=== PATIENT | male | born 1980 | race Caucasian/White ===

== ENCOUNTER 2016-04-16 14:36 | Emergency (ER) | payer OTHER ==
[2016-04-16 14:49] VITALS: PULSE 89; RESP 16; TEMP 98.2; O2SAT 98
[2016-04-16] MEDS ORDERED: TDAP ADULT 0.5 ML INJ (BOOSTRIX) IM ONE (14:49)
--- NOTE | 2016-04-16 15:34 | UCPHY ---
H & P Patient Type: New Chief Complaint Nursing Narrative: Cat bites and scratches on bilat arms and hands after breaking up patient's own cats fight today. Time Seen by Provider: 04/16/16 15:17 HPI/ROS: CHIEF COMPLAINT: Cat scratch and bite HISTORY OF PRESENT ILLNESS: The patient is a 35-year-old man who was breaking up a fight between his 2 cats. He has been several times on the right arm and has several scratches as well. This was about 2 hours ago. The bleeding is now stopped. He is not suspicious of foreign body. He was updated on tetanus here. REVIEW OF SYSTEMS: Constitutional: denies: chills, fever, recent illness, recent injury EENTM: denies: blurred vision, double vision, nose congestion Respiratory: denies: cough, shortness of breath Cardiac: denies: chest pain, irregular heart rate, lightheadedness, palpitations Gastrointestinal/Abdominal: denies: abdominal pain, diarrhea, nausea, vomiting, blood streaked stools Genitourinary: denies: dysuria, frequency, hematuria, pain Musculoskeletal: denies: joint pain, muscle pain Skin: See HPI Neurologic, denies paresthesia, tingling, dizziness, weakness Hematologic/Lymphatic: denies: blood clots, easy bleeding, easy bruising Immunologic/allergic: denies: HIV/AIDS, transplant EXAM: GENERAL: Well-appearing, well-nourished and in no acute distress. HEAD: Atraumatic, normocephalic. EYES: Pupils equal round and reactive to light, extraocular movements intact, sclera anicteric, conjunctiva are normal. ENT: TMs normal, nares patent, oropharynx clear without exudates. Moist mucous membranes. NECK: Normal range of motion, supple without lymphadenopathy or JVD. LUNGS: Breath sounds clear to auscultation bilaterally and equal. No wheezes rales or rhonchi. HEART: Regular rate and rhythm without murmurs, rubs or gallops. ABDOMEN: Soft, nontender, normoactive bowel sounds. No guarding, no rebound. No masses appreciated. BACK: No CVA tenderness, no spinal tenderness, step-offs or deformities EXTREMITIES: Normal range of motion, no pitting or edema. No clubbing or cyanosis. NEUROLOGICAL: Cranial nerves II through XII grossly intact. Normal speech, normal gait. 5/5 strength, normal movement in all extremities, normal sensation PSYCH: Normal mood, normal affect. SKIN: Multiple abrasions and small puncture wounds to arms and hands. Normal range of motion and function. No erythema. No sign of foreign body Source: Patient Exam Limitations: No limitations - Personal History Current Tetanus/Diphtheria Vaccine: Unsure Current Tetanus Diphtheria and Acellular Pertussis (TDAP): Unsure - Medical/Surgical History Hx Asthma: No Hx Chronic Respiratory Disease: No Hx Diabetes: No Hx Cardiac Disease: No Hx Renal Disease: No Hx Cirrhosis: No Hx Alcoholism: No Hx HIV/AIDS: No Hx Splenectomy or Spleen Trauma: No Other PMH: Smokes marijuana and cigars, tonsilectomy, vasectomy - Family History Significant Family History: Hypertension - Social History Smoking Status: Never smoked Alcohol Use: Sober Drug Use: None Constitutional: Initial Vital Signs Temperature (C) 36.8 C 04/16/16 14:42 Heart Rate 89 04/16/16 14:42 Respiratory Rate 16 04/16/16 14:42 O2 Sat (%) 98 04/16/16 14:42 O2 Delivery Mode Room Air Allergies/Adverse Reactions: Sulfa (Sulfonamide Antibiotics) Allergy (Intermediate, Verified 04/16/16 14:47) Hives Home Medications: Medication Instructions Recorded NK [No Known Home Meds] 04/16/16 Medical Decision Making ED Course/Re-evaluation: The patient's tetanus was updated. His abrasions and puncture wounds were cleaned and dressed with antibiotic ointment. He is happy with this and declines further workup or testing. We discussed cat scratch disease and symptoms to watch for. He also had several questions about a "gurgling sensation" he had had in his stomach over the last several months. It has decreased gradually. It is not painful. His abdominal exam is benign. He is not having diarrhea or vomiting. He states that it felt better with senna tea. I encouraged him to continue monitoring this and possibly follow up with GI. Differential Diagnosis: Partial list of the Differential diagnosis considered include but were not limited to; foreign body, abrasion, infection, puncture wound and although unlikely based on the history and physical exam, I also considered vascular injury, nerve injury, assault. I discussed these differential diagnoses and the plan with the patient as well as the usual and expected course. The patient understands that the diagnosis is provisional and that in medicine we are not always correct and that further workup is often warranted. Usual and customary warnings were given. All of the patient's questions were answered. The patient was instructed to return to the emergency department should the symptoms at all worsen or return, otherwise to followup with the physician as we discussed. - Data Points Medications Given: Discontinued Medications Diphtheria/Tetanus/Acell Pertussis (Boostrix) 0.5 ml IM .ONCE ONE Stop: 04/16/16 14:50 Last Admin: 04/16/16 15:01 Dose: 0.5 ml Departure - Departure Disposition: Home, Routine, Self-Care Clinical Impression: Cat scratch, Puncture wound Condition: Fair Instructions: Cat Scratch Disease (ED) Referrals: NONE *PRIMARY CARE P,. [Primary Care Provider] - As per Instructions Arcadio Pelayo MD [Medical Doctor] - As per Instructions - PQRS PQRS Measurement: Not applicable
== END 2016-04-16 16:04 | disposition home or self-care (01) ==
LOC: CED 14:36
DX: S51.831A Puncture wound without foreign body of right forearm, initial encounter (principal); S51.832A Puncture wound without foreign body of left forearm, initial encounter; S60.512A Abrasion of left hand, initial encounter; S60.511A Abrasion of right hand, initial encounter; W55.03XA Scratched by cat, initial encounter; Y93.K9 Activity, other involving animal care; I10 Essential (primary) hypertension
CPT/HCPCS: G0463-PO